=== PATIENT | male | born 1955 | race African-American/Black ===

== ENCOUNTER 2022-07-19 13:14 | Inpatient (IN) | payer OTHER ==
[~2022-07-19] VITALS: Ht 185.4 cm; Wt 56.7 kg
[2022-07-19] MEDS ORDERED: SODIUM CHLORIDE 0.9% 1,000 ML IV ONE (13:45)
[2022-07-19 15:00] LABS: BASOPHILS % 0.7 % (0.0-2.0); EOSINOPHILS % 0.2 % (0.0-5.0); HEMATOCRIT. 22.6 % (42.0-52.0); HEMOGLOBIN. 7.2 g/dL (14.0-18.0); LYMPHOCYTES % 10.4 % (20.0-50.0); MEAN CORPUSCULAR HEMOGLOBIN 25.9 pg (28.0-32.0); MEAN CORPUSCULAR VOLUME 81.2 fL (80.0-94.0); MEAN PLATELET VOLUME 7.1 fl (7.4-10.4); MONOCYTES % 5.2 % (2.0-8.0); NEUTROPHILS % 83.5 % (40.0-76.0); PLATELET 835 x1000/uL (130-400); RED BLOOD CELL COUNT 2.79 mill/uL (4.7-6.1); RED CELL DISTRIBUTION WIDTH 19.7 % (11.6-14.6)
[2022-07-19 15:15] LABS: CHLORIDE 100 mEq/L (98-107)
[2022-07-19 15:26] LABS: ETHANOL BLOOD < 10 mg/dL
[2022-07-19] MEDS ORDERED: AZITHROMYCIN 500MG/250ML 250 ML IV ONE (16:30)
[2022-07-19] MEDS ORDERED: CEFTRIAXONE 1 G PREMIX 50 ML IV ONE (16:30)
[2022-07-19] MEDS ORDERED: CEFTRIAXONE 1 G PREMIX 50 ML IV SCH (19:45)
[2022-07-19] MEDS ORDERED: HYDROCODONE/ACETAMINOPHEN 5/325MG TABLET PO PRN (19:45)
[2022-07-19] MEDS ORDERED: ACETAMINOPHEN 325MG TABLET PO PRN ×2 (19:45)
[2022-07-19] MEDS ORDERED: MAGNESIUM/ALUMINUM HYDROXIDE/SIMETHICONE 30ML UDC PO PRN (19:45)
[2022-07-19] MEDS ORDERED: AZITHROMYCIN 500 MG in DEXT 5% WATER 250 ML IV SCH (19:45)
[2022-07-19] MEDS ORDERED: GUAIFENESIN 200MG/10ML SUGAR FREE UDC PO PRN (19:45)
[2022-07-19] MEDS ORDERED: IPRATROPIUM/ALBUTEROL 0.5-3(2.5)MG/3ML NEB NEB PRN (19:45)
[2022-07-19] MEDS ORDERED: CLONIDINE 0.1MG TABLET PO PRN (19:45)
[2022-07-19] MEDS ORDERED: ONDANSETRON HCL 4MG/2ML INJ IV PRN (19:45)
[2022-07-19 23:00] VITALS: BP 119/60
[2022-07-20] VITALS (7 sets, daily range): BP systolic 102–126; BP diastolic 54–68
[2022-07-20] MEDS ORDERED: NALOXONE HCL 0.4MG/ML VIAL IV PRN (08:00)
[2022-07-20] MEDS ORDERED: ENOXAPARIN 40MG/0.4ML SYR SUBCUT SCH (10:00)
[2022-07-20 11:05] LABS: MEAN CORPUSCULAR HEMOGLOBIN 26.2 pg (28.0-32.0); MEAN CORPUSCULAR VOLUME 78.9 fL (80.0-94.0); PLATELET 673 x1000/uL (130-400); RED BLOOD CELL COUNT 2.22 mill/uL (4.7-6.1); RED CELL DISTRIBUTION WIDTH 19.6 % (11.6-14.6)
[2022-07-20 11:12] LABS: HEMOGLOBIN 5.8 g/dL (14.0-18.0)
[2022-07-20 11:13] LABS: HEMATOCRIT 17.5 % (42.0-52.0)
[2022-07-20 11:34] LABS: T4 FREE 1.3 ng/dL (0.76-1.46)
[2022-07-20 12:30] LABS: VITAMIN B12 SERUM 1463 pg/mL (211-911)
[2022-07-20 13:12] LABS: FOLIC ACID (FOLATE) SERUM > 20.00 ng/mL (>5.38)
[2022-07-20 13:32] LABS: CHLORIDE 100 mEq/L (98-107)
[2022-07-20] MEDS ORDERED: CEFTRIAXONE 1,000 MG in DEXTROSE 5% WATER 50 ML IV SCH (16:00)
[2022-07-20] MEDS ORDERED: AZITHROMYCIN 500 MG in DEXT 5% WATER 250 ML IV SCH (17:00)
[2022-07-20] MEDS: CLOPIDOGREL 75MG TABLET PO SCH (18:27)
[2022-07-20 22:34] LABS: HEMATOCRIT 26.9 % (42.0-52.0); HEMOGLOBIN 8.4 g/dL (14.0-18.0)
[2022-07-20 22:57] LABS: CREATINE KINASE 33 IU/L (39-308); CREATINE KINASE MB FRACTION < 1.0 ng/mL (0.5-3.6)
[2022-07-21 04:00] VITALS: BP 106/65
[2022-07-21 08:00] VITALS: BP 117/63
[2022-07-21] MEDS: CLOPIDOGREL 75MG TABLET PO SCH (08:35)
[2022-07-21 14:44] VITALS: BP 117/63
== END 2022-07-21 15:50 | disposition home or self-care (01) | DRG 687 ==
LOC: ER 13:14 → 8WST 18:33 → SUPCPDRO 19:35 → ENRESERV 19:54
PROVIDERS: ADMIT Internal Medicine; ATTEND Internal Medicine
PROC: 30233N1 Transfusion of Nonautologous Red Blood Cells into Peripheral Vein, Percutaneous Approach (ICD-10-PCS; principal; 2022-07-20)
DX: C64.9 Malignant neoplasm of unspecified kidney, except renal pelvis (principal); I42.9 Cardiomyopathy, unspecified; I11.0 Hypertensive heart disease with heart failure; I25.10 Atherosclerotic heart disease of native coronary artery without angina pectoris; D63.0 Anemia in neoplastic disease; R62.7 Adult failure to thrive; Z20.822 Contact with and (suspected) exposure to COVID-19; I50.9 Heart failure, unspecified; R26.2 Difficulty in walking, not elsewhere classified; Z74.01 Bed confinement status; Z95.5 Presence of coronary angioplasty implant and graft; Z85.528 Personal history of other malignant neoplasm of kidney; Z87.891 Personal history of nicotine dependence
CPT/HCPCS: 36415; 71045; 80053; 80061; 80320; 82270; 82550; 82553; 82607; 82746; 83036; 83880; 84439; 84443; 84484; 85014; 85018; 85025; 85027; 85379; 86850; 86900; 86920; 87426; 93306; 97162; 97165; 99285; C9803; J0456; J0696; J7030; J7060; P9016; G0480